=== PATIENT | male | born 1950 | race Caucasian/White ===

== ENCOUNTER 2016-06-01 17:25 | Emergency (ER) | payer OTHER ==
[2016-06-01] MEDS ORDERED: TDaP 0.5 ML VIAL IM.VACC ONE (21:16)
[2016-06-01] MEDS ORDERED: CLINDAMYCIN 600 MG/4 ML VIAL ONE (21:16)
== END 2016-06-01 21:34 | disposition home or self-care (01) ==
LOC: ER 17:25
CPT/HCPCS: 36415; 80053; 85025; 85652; 87040; 90471; 96372